=== PATIENT | female | born 1950 | race Caucasian/White ===

== ENCOUNTER 2016-04-14 09:23 | Emergency (ER) ==
--- NOTE | 2016-04-14 10:05 | PROVIDER DOCUMENTATION ---
HPI-Musculoskeletal Pain/Inj - GENERAL Chief Complaint: Extremity Pain Stated Complaint: KNEE INJURY Time Seen by Provider: 04/14/16 10:00 Source: patient - HX OF PRESENT ILLNESS-MUSKULOSKELTAL Nature of Presenting Problem: 65 yof fell 2 weeks ago. Still having increased pain to left knee. Patient also has some swelling and mild redness and warmth to left knee. Quality of Pain: reports: aching Severity in ED: mild Onset/Duration: other (about 2 weeks ago.) Timing: still present Modifying Factors: improves with: rest Any recent injury?: No Locality of Occurance: Home Similar Symptoms Previously?: No Recently seen or treated by another doctor?: No - FALL INJURY Location of Pain/Injury: reports: lower extremity Reason for Fall: reports: lost balance Symptoms prior to fall:: reports: none Loss of Consciousness: no loss of consciousness Injury Associated Symptoms: reports: joint pain, muscle aches - LOWER EXTREMITY PAIN/INJURY Lower Extremities Pain: knee: left (Mild pain and very mild edema) Context / Method of Injury: reports: fell Associated Symptoms: denies: denies symptoms, loss of bladder control, loss of bowel control, lower back pain, muscle spasms, numbness in legs/feet, sensory/ motor loss, tingling in legs/feet, weakness in legs/feet, other Review of Systems - Adult - REVIEW OF SYSTEMS - ADULT Constitutional: reports: see HPI Eyes: reports: no symptoms reported. denies: see HPI, discharge, dry eyes, decreased vision, blurred vision, double vision, eye pain, redness, other Ears, Nose, Mouth & Throat: reports: no symptoms reported. denies: see HPI, ear discharge, ear pain, hearing loss, tinnitus, epistaxis, sinus problem, nose pain, loose teeth, mouth/dental pain, mouth swelling, hoarseness, throat pain, throat swelling, other Cardiovascular: reports: no symptoms reported. denies: see HPI, chest pain, edema, heart murmur, irregular heart rate, orthopnea, palpitations, poor circulation, PND, syncope, other Respiratory: reports: no symptoms reported Genitourinary: reports: no symptoms reported. denies: see HPI, dysuria, discharge, frequency, flank pain, frequent UTI's, hematuria, hesitency, incontinence, urinary retention, urgency, other Musculoskeletal: reports: see HPI, joint pain, muscle aches Integumentary: reports: no symptoms reported. denies: see HPI, hives, hair loss , itching, mole changes, nail changes, rash, skin sores/ulcer, skin thickening, other Neurological: reports: no symptoms reported. denies: see HPI, ataxia, dizziness /vertigo, headache/migraines, loss of balance, numbness, paresthesia, seizure, slurred speech, syncope, tremors, other All Other Systems: Reviewed and Negative Past History - Adult - PAST MEDICAL HISTORY-ADULT Review of Records: reports: Old Records Reviewed, Nursing Assessment Review, Medications Reviewed, Social history reviewed & non-contributory. Physical Exam-Injury Related - Physical Exam-Injury Related Initial Vital Signs Reviewed: Yes General Appearance: appears well, alert, no apparent distress Immobilization?: negative: backboard, C-collar, applied in ED, applied [employer] Eyes: PERRL/EOMI, pink conjunctivae. negative: fundi clear, no AV nicking, anisocoria, conjuctival exudate, EOM palsy, meningismus, pale conjunctivae, photophobia, sclera injected, scleral icterus, subconjunctival hemorrhage, sunken eyes, other Head, Ears, Nose, Mouth & Throat: normocephalic/atraumatic, moist mucous membranes, normal ENT inspection. negative: TMs normal, pharynx normal, angioedema, dental decay, hearing deficit, pharyngeal erythema, tonsillar exudate, TM abnormal, TM obscurred by cerumen, frontal tenderness, maxillary tenderness, other Neck: non-tender, full range of motion, supple, normal inspection. negative: pain with axial compression, Brudzinski's sign, carotid bruit, C-spine tenderness, decresed ROM, ecchymosis, limited range of motion, lymphadenopathy, muscle spasm, nexus criteria negative, pain on movement, subcutaneous emphysema , swelling, trachial deviation, tender lateral, tender midline, thyromegaly, vertebral point tenderness, other Respiratory: chest non-tender, lungs clear, normal breath sounds, no pleuratic chest pain, no respiratory distress, no accessory muscle use. negative: respiratory distress, decreased breath sounds, accessory muscle use, crackles, rales, rhonchi, stridor, wheezing, dull on percussion, prolonged expiration, pain on inspiration, pleural rub, retractions, splinting, decreased rate, increased rate, crepitus, ecchymosis, flail chest, palpable fracture, paradoxical movements, rib tenderness, seat belt bruising, tenderness, other Cardiovascular: normal peripheral pulses, regular rate, rhythm, no edema, no gallop, no JVD, no murmur. negative: JVD, bradycardia, tachycardia, diastolic murmur, systolic murmur, gallop/S3, gallop/S4, extra beats, friction rub, irregularly irregular, PMI displaced laterally, other Chest/Breast: deferred. negative: normal breast inspection, no masses/lumps, no tenderness, nipple discharge, tenderness, mass/lump noted, other Abdominal Exam: normal bowel sounds, non tender, soft, no organomegaly, no pulsatile mass. negative: abdominal bruit, abnormal bowel sounds, distended, guarding, rigid, rebound, tenderness, hernia, mass, hepatomegaly, spleenomegaly , McBurney's point tenderness, Parsons's sign, obturator sign, prominent aortic pulsations, psoas, Rovsing's sign, other Female Genitalia/Pelvic Exam: deferred Lymphatic: no adenopathy. negative: axilla node tender, cervical node tenderness, inguinal node tender, enlargement, striations, streaking, other Back Exam: normal inspection, no CVA tenderness, no vertebral tenderness. negative: CVA tenderness, decreased range of motion, ecchymosis, kyphosis, lordosis, muscle spasm, scoliosis, swelling, vertebral tenderness, other Extremity: no pedal edema, no calf tenderness, normal capillary refill, swelling , tenderness Integumentary: normal color, warm/dry Neurologic: grossly normal, no motor/sensory deficits Psych/Mental Status: normal mood/affect, normal thought content, normal thought process, oriented x 3 - Glascow Coma Score Best Eye Response ([place]): (4) open spontaneously Best Verbal Response ([place]): (5) oriented Best Motor Response ([place]): (6) obeys commands [place] Total: 15 Progress - PLAN OF CARE/RESULTS Progress/Plan/Lab Results: Orders Category Date Time Status KNEE 3 VIEWS LEFT [RAD] Stat Exams 04/14/16 10:00 Completed Venous U/S Bilateral Legs [CV] Stat Ther 04/14/16 10:01 Completed Vital Signs Temp Pulse Resp BP Pulse Ox 04/14/16 12:46 97 F L 80 16 139/84 97 04/14/16 09:24 97.8 F 87 18 176/90 94 L aspirin Allergy (Verified 04/14/16 09:28) HIVES latex Allergy (Verified 04/14/16 09:28) Unknown - XRAY 1 XRAY Study: Knee Impression: Abnormal (Arthritic changes otherwise normal x-ray. Read by radiologist.) - ULTRASOUND (By Radiology) 1 US Study: Lower Ext Impression: Normal (No DVT found per radiologist.) Departure - Departure Time of Disposition Order: 12:39 DIAGNOSIS: Knee contusion Qualifiers: Encounter type: initial encounter Laterality: left Qualified Code(s): S80.02XA - Contusion of left knee, initial encounter Disposition: HOME 01 Certified Medical Emergency: Emergent Condition: Stable Additional Instructions: ED Follow Up Instructions: You have been treated by a care provider in the Emergency Department. These instructions are being provided to you so you can have an understanding of how to care for yourself upon discharge. Upon discharge from the Emergency Department, you are responsible for making arrangements for follow-up care by a physician of your choice. Take all prescribed medications as directed. Return to the Emergency Department immediately for any new or worsening symptoms. You may call the Physician Referral phone number at [phone] to obtain a list of Physicians who are taking new patients. Referrals: Debi Jackson MD [Primary Care Provider] - Instructions: Contusion, Cybr-do-Aabi Attestation - Physician/ BILLY Attestation Patient care was provided by Advanced Practice Provider:: Yes Advanced Practice Provider:: Chicho Hanks Advanced Practice Provider documentation review:: The Mid-level provider documentation, treatment plan and medical decision making was reviewed by the physician who agrees with all treatment and medical decision making by the [facility]. Physician Attestation - Physician Attestation I, the provider, attest to the following statement:: Chicho Hanks Physician documentation Attestation:: This documentation recorded by the scribe accurately reflects the service I personally performed and the decisions made by me.
--- NOTE | 2016-04-14 11:09 | Diag Imaging Result Document ---
PROCEDURE NAME: KNEE 3 VIEWS LEFT - 04/14/2016 LEFT KNEE, THREE VIEWS: FINDINGS: There is patellofemoral joint space narrowing with bone spurring to the patella. There is also bone spurring to the femoral condyles and tibial plateau with moderate medial joint space narrowing. No fracture. No dislocation. IMPRESSION: 1. No acute bony injury. 2. Creyvere-[id number]-[id number] arthritic changes.
[2016-04-14 12:46] VITALS: BP 139/84
--- NOTE | 2016-04-15 07:20 | Extremity Venous Study ---
PROCEDURE NAME: Venous U/S Bilateral Legs - 04/14/2016 BILATERAL LOWER EXTREMITY VENOUS DOPPLER ULTRASOUND: COMPARISON: None. FINDINGS: The deep veins of the lower extremities are fully compressible. There is normal color and pulse wave Doppler signal. IMPRESSION: Negative exam.
== END 2016-04-14 12:56 | disposition home or self-care (01) ==
LOC: P.ED 09:23
DX: S80.02XA Contusion of left knee, initial encounter (principal); M25.562 Pain in left knee; M25.462 Effusion, left knee; L53.9 Erythematous condition, unspecified; M79.1 Myalgia; W19.XXXA Unspecified fall, initial encounter
CPT/HCPCS: 93970; 99283